=== PATIENT | female | born 1955 | race Caucasian/White ===

== ENCOUNTER 2020-04-29 06:22 | Outpatient (REF) | payer OTHER, SELFPAY ==
[2020-04-29 07:57] LABS: Alanine Aminotransferase 49 U/L (0-31); Albumin Level 4.6 g/dL (3.5-5.0); Alkaline Phosphatase 44 U/L (39-117); Aspartate Amino Transferase 41 U/L (5-31); Bilirubin Direct 0.3 mg/dL (0.0-0.5); Bilirubin Total 0.6 mg/dL (0.0-1.0); Cholesterol 183 mg/dL; HDL Cholesterol 43 mg/dL; LDL Cholesterol Calculated 91 mg/dl; Total Protein 7.5 g/dL (6.5-8.0); Triglycerides 245 mg/dL
== END 2020-04-29 06:23 | disposition home or self-care (01) ==
LOC: HO.LAB 06:22
PROVIDERS: PCP Internal Medicine; Visit Provider Internal Medicine
DX: E11.65 Type 2 diabetes mellitus with hyperglycemia (principal); E78.00 Pure hypercholesterolemia, unspecified; K76.0 Fatty (change of) liver, not elsewhere classified; I10 Essential (primary) hypertension; E03.9 Hypothyroidism, unspecified; M81.0 Age-related osteoporosis without current pathological fracture; Z12.31 Encounter for screening mammogram for malignant neoplasm of breast
CPT/HCPCS: 80061; 80076

== ENCOUNTER 2020-05-15 07:54 | Outpatient (REF) | payer OTHER, SELFPAY ==
--- NOTE | 2020-05-15 07:58 | MM_ITS ---
EXAMINATION: MM SCREENING DIGITAL BREAST TOMOSYNTHESIS, BILATERAL CLINICAL INFORMATION: Screening. Asymptomatic. The lifetime risk of breast cancer based on the Tyrer-Cuzick Model is 6.8%. COMPARISON: Mammography: November 30, 2018 and studies dating back to May 27, 2011 TECHNIQUE: Digital breast tomosynthesis is performed in both the craniocaudal and mediolateral oblique views along with computer-aided detection (CAD). Synthesized 2D images are generated from the tomosynthesis. FINDINGS: There are scattered areas of fibroglandular density (ACR BI-RADS breast composition Category b). There are no significant masses, abnormal calcifications, or other abnormalities. MM/MM tomosynthesis screening BI IMPRESSION: There are no significant changes from prior study. ASSESSMENT: BI-RADS 1: Negative RECOMMENDATION: Routine annual mammography screening. This patient's information was entered into a reminder system with a target due date for their next mammogram.
== END 2020-05-15 07:55 | disposition home or self-care (01) ==
LOC: HO.MAMMO 07:54
PROVIDERS: PCP Internal Medicine; Visit Provider Internal Medicine
DX: Z12.31 Encounter for screening mammogram for malignant neoplasm of breast (principal)
CPT/HCPCS: 77063; 77067

== ENCOUNTER → 2020-08-24 14:15 | Outpatient (BNVA) | payer OTHER, SELFPAY | PROVIDERS: PCP Internal Medicine; Visit Provider Nurse Practitioner ==

== ENCOUNTER → 2020-09-18 12:32 | Outpatient (BNVA) | payer OTHER, SELFPAY | PROVIDERS: PCP Internal Medicine; Visit Provider Nurse Practitioner ==

== ENCOUNTER → 2021-01-08 13:31 | Outpatient (BNVA) | payer OTHER, SELFPAY | PROVIDERS: PCP Internal Medicine; Referring Provider Internal Medicine; Visit Provider Nurse Practitioner ==

== ENCOUNTER 2021-03-20 07:02 | Outpatient (REF) | payer OTHER, SELFPAY ==
[2021-03-20 07:21] LABS: MANUAL DIFF FLAG NO
[2021-03-20 07:45] LABS: Basophils Absolute Auto 0.1 X10*3/uL (0.0-0.2); Basophils Percent Auto 0.9 % (0-2); Eosinophils Absolute Auto 0.1 X10*3/uL (0.0-0.4); Eosinophils Percent Auto 2.4 % (0-4); Hematocrit 39.4 % (37-47); Hemoglobin 12.7 g/dl (12.0-16.0); Imm Gran Abs Auto 0.04 X10*3/uL (0.00-0.03); Imm Gran Pct Auto 0.7 % (0.0-0.4); Lymphocytes Absolute Auto 1.8 X10*3/uL (1.2-4.9); Lymphocytes Percent Auto 30.6 % (20-40); Mean Corpuscular HGB Conc 32.2 g/dl (31.0-35.0); Mean Corpuscular Hemoglobin 26.8 pg (27.0-33.0); Mean Corpuscular Volume 83.3 fL (80-98); Mean Platelet Volume 11.1 fL (9.4-12.3); Monocytes Absolute Auto 0.7 X10*3/uL (0.1-1.2); Monocytes Percent Auto 11.4 % (2-11); Neutrophils Absolute Auto 3.1 X10*3/uL (2.0-8.3); Platelet Count 249 X10*3/uL (160-400); Red Blood Count 4.73 X10*6/uL (4.20-5.50); Red Cell Distribution Width 14.7 % (11.0-16.0); White Blood Count 5.8 X10*3/uL (4.8-10.8)
[2021-03-20 08:02] LABS: Alanine Aminotransferase 78 U/L (0-31); Albumin Level 4.6 g/dL (3.5-5.0); Alkaline Phosphatase 60 U/L (39-117); Anion Gap 16 (12-20); Aspartate Amino Transferase 51 U/L (5-31); Bilirubin Total 0.5 mg/dL (0.0-1.0); Blood Urea Nitrogen 33 mg/dL (9-16); Carbon Dioxide 23 mmol/L (22-29); Chloride 106 mmol/L (96-108); Cholesterol 187 mg/dL; Estimated Glomerular Filt Rate 43; Glucose Random 95 mg/dL (60-115); HDL Cholesterol 42 mg/dL; LDL Cholesterol Calculated 103 mg/dl; Potassium 4.7 mmol/L (3.3-5.1); Sodium 140 mmol/L (135-145); Total Protein 7.5 g/dL (6.5-8.0); Triglycerides 212 mg/dL
[2021-03-20 08:11] LABS: Estimated Average Glucose 128 mg/dL; Hemoglobin A1C 148.3137 umol/L; Hemoglobin A1c % 6.1 %
[2021-03-20 08:24] LABS: Free T4 (Free Thyroxine) 0.86 ng/dL (0.71-1.85); Vitamin D 25-OH Total 38.9 ng/mL (>30)
[2021-03-22 08:06] LABS: Folate 15.4 ng/mL (> or = 4.0); Vitamin B12 826 pg/mL (200-900)
== END 2021-03-20 07:03 | disposition home or self-care (01) ==
LOC: HO.LAB 07:02
PROVIDERS: PCP Internal Medicine; Visit Provider Internal Medicine
DX: I10 Essential (primary) hypertension (principal); E78.00 Pure hypercholesterolemia, unspecified; E03.9 Hypothyroidism, unspecified; E11.65 Type 2 diabetes mellitus with hyperglycemia; M81.0 Age-related osteoporosis without current pathological fracture
CPT/HCPCS: 36415; 80053; 80061; 82306; 82607; 82746; 83036; 84439; 84443; 85025

== ENCOUNTER 2021-03-23 09:05 | Outpatient (REF) | payer OTHER, SELFPAY ==
[2021-03-23 10:25] LABS: Creatinine Urine 79.35 mg/dL; Microalbum/Creatinine Ratio Ur 8.8 ug/mg cr
== END 2021-03-23 09:06 | disposition home or self-care (01) ==
LOC: HO.LNP 09:05
PROVIDERS: Visit Provider Internal Medicine
DX: E11.65 Type 2 diabetes mellitus with hyperglycemia (principal)
CPT/HCPCS: 82043

== ENCOUNTER → 2021-04-02 14:41 | Outpatient (BNVA) | payer OTHER, SELFPAY | PROVIDERS: PCP Internal Medicine; Visit Provider Nurse Practitioner ==

== ENCOUNTER 2022-03-15 08:53 | Outpatient (REF) | payer OTHER, SELFPAY ==
--- NOTE | ~2022-03-15 | MM_ITS ---
EXAMINATION: MM SCREENING DIGITAL BREAST TOMOSYNTHESIS, BILATERAL CLINICAL INFORMATION: Screening. Asymptomatic. The lifetime risk of breast cancer based on the Tyrer-Cuzick Model is 6%. COMPARISON: Mammography: 05/15/2020, 11/30/2018, 10/09/2017 TECHNIQUE: Digital breast tomosynthesis is performed in both the craniocaudal and mediolateral oblique views along with computer-aided detection (CAD). Synthesized 2D images are generated from the tomosynthesis. FINDINGS: There are scattered areas of fibroglandular density (ACR BI-RADS breast composition Category b). There are no significant masses, abnormal calcifications, or other abnormalities. Parenchymal pattern is similar to prior studies. There is no developing density or architectural abnormality. The axilla and skin contours are unremarkable. No significant changes. MM/MM tomosynthesis screening BI IMPRESSION: No mammographic evidence of malignancy. ASSESSMENT: BI-RADS 1: Negative RECOMMENDATION: Routine annual mammography screening. This patient's information was entered into a reminder system with a target due date for their next mammogram.
== END 2022-03-15 08:54 | disposition home or self-care (01) ==
LOC: HO.MAMMO 08:53
PROVIDERS: Visit Provider Internal Medicine
DX: Z12.31 Encounter for screening mammogram for malignant neoplasm of breast (principal)
CPT/HCPCS: 77063; 77067

== ENCOUNTER 2022-04-23 07:12 | Outpatient (REF) | payer OTHER, SELFPAY ==
[2022-04-23 07:28] LABS: MANUAL DIFF FLAG NO
[2022-04-23 08:19] LABS: Basophils Absolute Auto 0.1 X10*3/uL (0.0-0.2); Basophils Percent Auto 0.9 % (0-2); Eosinophils Absolute Auto 0.2 X10*3/uL (0.0-0.4); Eosinophils Percent Auto 2.5 % (0-4); Hematocrit 38.7 % (37.0-47.0); Hemoglobin 12.7 g/dl (12.0-16.0); Imm Gran Abs Auto 0.03 X10*3/uL (0.00-0.03); Imm Gran Pct Auto 0.5 % (0.0-0.4); Lymphocytes Absolute Auto 2.1 X10*3/uL (1.2-4.9); Lymphocytes Percent Auto 33.2 % (20-40); Mean Corpuscular HGB Conc 32.8 g/dl (31.0-35.0); Mean Corpuscular Hemoglobin 27.6 pg (27.0-33.0); Mean Corpuscular Volume 84.1 fL (80.0-98.0); Mean Platelet Volume 10.6 fL (9.4-12.3); Monocytes Absolute Auto 0.8 X10*3/uL (0.1-1.2); Monocytes Percent Auto 11.7 % (2-11); Neutrophils Absolute Auto 3.3 x10*3/uL (2.0-8.3); Neutrophils Percent Auto 51.2 % (45-73); Platelet Count 296 X10*3/uL (160-400); Red Cell Distribution Width 14.8 % (11.0-16.0); White Blood Count 6.4 X10*3/uL (4.8-10.8)
[2022-04-23 08:22] LABS: Estimated Average Glucose 128 mg/dL; Hemoglobin A1c % 6.1 %
[2022-04-23 08:39] LABS: Alanine Aminotransferase 66 U/L (0-31); Albumin Level 4.4 g/dL (3.5-5.0); Alkaline Phosphatase 46 U/L (39-117); Anion Gap 16 (12-20); Aspartate Amino Transferase 45 U/L (5-31); Bilirubin Total 0.6 mg/dL (0.0-1.0); Blood Urea Nitrogen 31 mg/dL (9-16); Calcium 10.5 mg/dL (8.4-10.2); Carbon Dioxide 25 mmol/L (22-29); Chloride 103 mmol/L (96-108); Cholesterol 206 mg/dL; Estimated Glomerular Filt Rate 39; Glucose Random 99 mg/dL (60-115); HDL Cholesterol 42 mg/dL; LDL Cholesterol Calculated 110 mg/dl; Sodium 139 mmol/L (135-145); Thyroid Stimulating Hormone 1.57 uIU/mL (0.32-4.0); Total Protein 7.2 g/dL (6.5-8.0); Triglycerides 271 mg/dL; Vitamin D 25-OH Total 34.6 ng/mL (>30)
[2022-04-23 08:40] LABS: Creatinine Urine 48.23 mg/dL; Microalbumin Urine < 5.0 mg/L
[2022-04-23 08:47] LABS: Folate 12.6 ng/mL (> or = 4.0); Vitamin B12 777 pg/mL (200-900)
[2022-04-23 09:34] LABS: Free T4 (Free Thyroxine) 1.09 ng/dL (0.71-1.85)
== END 2022-04-23 07:13 | disposition home or self-care (01) ==
LOC: HO.LAB 07:12
PROVIDERS: PCP Internal Medicine; Visit Provider Internal Medicine
DX: E11.65 Type 2 diabetes mellitus with hyperglycemia (principal); M81.0 Age-related osteoporosis without current pathological fracture; I10 Essential (primary) hypertension; E03.9 Hypothyroidism, unspecified; E78.00 Pure hypercholesterolemia, unspecified
CPT/HCPCS: 36415; 80053; 80061; 82043; 82306; 82607; 82746; 83036; 84439; 84443; 85025

== ENCOUNTER 2022-12-23 08:12 | Outpatient (REF) | payer OTHER, SELFPAY ==
[2022-12-23 08:46] LABS: Alanine Aminotransferase 58 U/L (0-31); Albumin Level 4.4 g/dL (3.5-5.0); Alkaline Phosphatase 57 U/L (39-117); Anion Gap 16 (12-20); Aspartate Amino Transferase 43 U/L (5-31); Bilirubin Total 0.9 mg/dL (0.0-1.0); Blood Urea Nitrogen 24 mg/dL (9-16); Calcium 10.9 mg/dL (8.4-10.2); Carbon Dioxide 25 mmol/L (22-29); Chloride 104 mmol/L (96-108); Cholesterol 256 mg/dL; Estimated Glomerular Filt Rate 36; Glucose Random 106 mg/dL (60-115); HDL Cholesterol 45 mg/dL; LDL Cholesterol Calculated 158 mg/dl; Potassium 4.6 mmol/L (3.3-5.1); Sodium 140 mmol/L (135-145); Total Protein 7.6 g/dL (6.5-8.0); Triglycerides 267 mg/dL
== END 2022-12-23 08:13 | disposition home or self-care (01) ==
LOC: HO.LAB 08:12
PROVIDERS: PCP Internal Medicine; Visit Provider Internal Medicine
DX: E78.00 Pure hypercholesterolemia, unspecified (principal)
CPT/HCPCS: 36415; 80053; 80061

== ENCOUNTER 2022-12-26 15:12 | Outpatient (AMB) | payer OTHER, SELFPAY ==
[2022-12-26 15:17] VITALS: BP 130/70; PULSE 72; O2SAT 98; BMI 23.1
--- NOTE | 2022-12-26 15:17 | A.OFFPC_ITS ---
Vital Signs 12/26/22 15:17 Height 5 ft 5 in Weight 139 lb BMI 23.1 BP 130/70 Blood Pressure Location Lt brachial Position Sitting Pulse 72 Pulse Source Pulse Oximeter Temp Source Skin Pulse Oximetry (%) 98 Oxygen Delivery Method Room Air Intake Visit Reasons: PHYSICAL Senior Policy Analyst Required: No Allergies niacin Allergy (Unknown, Verified 12/26/22 15:17) hives,diarrhea Medication List - Last Reconciled 12/26/22 by Antonio Linares MD alendronate 70 mg PO QWEEK atorvastatin (Lipitor) 40 mg PO DAILY 90 days cholecalciferol (vitamin D3) 50 mcg PO DAILY 90 days fenofibrate 160 mg PO DAILY levothyroxine 50 mcg PO DAILY lisinopril 5 mg PO DAILY metformin 1,000 mg PO DAILY Tobacco use date assessed: 12/26/22 Fall risk assessment: No Falls in past year Last assessed Fall Risk: 12/26/22 Dental Screening Dental Screen Date: 12/26/22 Did you have a dental visit in the last 12 months?: Yes Did you have a dental problem in the last 6 months where you did not have access to dental care?: No Was dental information given to patient?: Patient has dentist HPI PHYSICAL HPI Details 67-year-old female with diabetes mellitus hypercholesterolemia osteoporosis hypothyroidism hypertension last seen in July 2022. Patient is here for physical exam. Mammogram is up-to-date bone density is due and Cologuard test is up-to-date. [facility] Medical History (Updated 12/26/22 @ 16:19 by Antonio Linares MD) Breast cancer screening by mammogram Colon cancer screening Fatty liver Hypercholesterolemia Hypertension Hypothyroid Osteoporosis Type 2 diabetes mellitus with hyperglycemia Surgical History History of cholecystectomy Hx of colonoscopy (~2010) Family History Father Myocardial infarction Mother CAD (coronary artery disease) Social History Housing: House Alcohol intake: never Patient Tobacco Use Status: Never used Tobacco e-Cigarette/Vaping Use: Never Used Second Hand Smoke Exposure: No Current occupational status: retired Cognitive needs: No Hearing needs: No Vision needs: No Questionnaire PHQ-9 Over the last 2 weeks, how often have you been bothered by any of the following problems? 1. Little interest or pleasure in doing things: not at all 2. Feeling down, depressed, or hopeless: not at all 3. Trouble falling or staying asleep, or sleeping too much: not at all 4. Feeling tired or having little energy: not at all 5. Poor appetite or overeating: not at all 6. Feeling bad about yourself - or that you are a failure or have let yourself or your family down: not at all 7. Trouble concentrating on things, such as reading the newspaper or watching television: not at all 8. Moving or speaking so slowly that other people could have noticed. Or the opposite - being so fidgety or restless that you have been moving around a lot more than usual: not at all 9. Thoughts that you would be better off or of hurting yourself in some way: not at all Total score: 0 Depression Screening Interpretation: Negative Source: Developed by Drs. Bhavik Villar, Vriy Lam, Ray Matias and colleagues, with an educational marla from [employer]. Thrive Questionnaire Date Thrive assessed: 08/05/22 AUDIT C Alcohol Use Questionnaire (AUDIT-C) 1. How often do you have a drink containing alcohol?: Never 2. How many drinks containing alcohol do you have on a typical day when you are drinking?: 1 or 2 3. How often do you have six or more drinks on one occasion?: Never Total Score: 0 CHRYSTAL-7 AMB Questionnaire CHRYSTAL-7 Date CHRYSTAL - 7 assessed: 12/26/22 Feeling nervous, anxious, or on edge: 0 = Not at all Not being able to stop or control worryin = Not at all Worrying too much about different things: 0 = Not at all Trouble relaxin = Not at all Being so restless that it is hard to sit still: 0 = Not at all Becoming easily annoyed or irritable: 0 = Not at all Feeling afraid as if something awful might happen: 0 = Not at all Total CHRYSTAL-7 score (0-4 normal; 5-9 mild; 10-14 moderate; 15-21 severe): 0 Source: Developed by Drs. Bhavik Villar, Ray Sams and colleagues, with an educational marla from [employer]. Review of Systems Const Denies poor appetite and Denies weakness Eyes Denies no additional complaints ENT Reports Normal hearing present, Denies dizziness, Denies nasal congestion, Denies tinnitus and Denies sore throat Card Denies chest pain, Denies syncope, Denies rapid heart rate and Denies dyspnea Resp Denies cough and Denies dyspnea GI Denies change in stool character, Reports constipation, Denies diarrhea, Denies nausea and Denies vomiting Denies urinary frequency, Denies difficulty voiding and Denies dysuria Neuro Reports Normal hearing present, Denies confusion, Denies dizziness, Denies syncope and Denies weakness Psych Denies confusion Physical exam (Primary Care) Vital Signs: Last Vital Signs Pulse 72 12/26/22 15:17 BP 130/70 12/26/22 15:17 Pulse Ox 98 12/26/22 15:17 Oxygen Delivery Method Room Air 12/26/22 15:17 Care Plan Goal for BP management: guaiac negative BMI result Body Mass Index 23.1 Tobacco/Smoking Status: Tobacco use Status Tobacco use date assessed 12/26/22 12/26/22 15:18 Patient Tobacco Use Status Never used Tobacco 12/26/22 15:18 e-Cigarette/Vaping Use Never Used 12/26/22 15:18 PHQ-9: PHQ-9 Score PHQ-9: Total score 0 12/26/22 16:20 Depression Screening Interpretation: Negative Thrive Assessment: Date of Thrive Assessment Date Thrive assessed 08/05/22 12/26/22 15:18 Const General: No confusion Orientation/consciousness: No confusion HENMT Head: Yes normocephalic Ears: external ears normal and TM's normal bilaterally Face and sinus: Yes normal facial exam Mouth: moist mucous membranes Throat: Yes tonsils normal Eyes Conjunctivae: conjunctivae normal Pupils: Equal, round and reactive pupils present and Pupil accommodation reflex normal Direct Ophthalmoscopy: normal light reflex Neck Neck: No lymphadenopathy Thyroid: Thyroid normal Chest Chest palpation & inspection: normal inspection of the chest Resp Effort & Inspection: normal respiratory effort and no audible wheezes Auscultation: clear to auscultation bilaterally, no crackles, no wheezes and lung sounds not diminished Cardio Rate: regular rate Rhythm: regular rhythm Peripheral pulses: radial pulses present and dorsalis pedis present GI Palpation (GI): no masses Auscultation: normal bowel sounds and normoactive bowel sounds Skin General skin exam: no rashes or lesions noted Rashes: no rashes Neuro General: No confusion Cranial nerves: Yes Equal, round and reactive pupils present and Yes Normal hearing present Cognition (Neuro): normal cognition Gait exam (Neuro): Normal gait present Motor exam (neuro): 5/5 motor strength present throughout Deep tendon reflexes (DTR's): Right brachioradialis reflex intensity grade: 2+, Left brachioradialis reflex intensity grade: 2+, Right patellar reflex intensity grade: 2+ and Left patellar reflex intensity grade: 2+ Extrem General: No edema Results AMB Hemoglobin A1c AMB Hemoglobin A1c 6.1 % Last Edit by MARY Linares on 12/26/22 16:24 Assessment and Plan Assessment & Plan (1) Annual physical exam: Code(s): Z00.00 - Encounter for general adult medical examination without abnormal findings (2) Type 2 diabetes mellitus with hyperglycemia: Comment: Eye and [employer] Code(s): E11.65 - Type 2 diabetes mellitus with hyperglycemia Qualifiers: Diabetes mellitus buttermaker continuous churn insulin use: without buttermaker continuous churn use Qualified Code(s): E11.65 - Type 2 diabetes mellitus with hyperglycemia Plan: Decrease the amount of carbohydrate intake, pasta, bread, rice and potatoes are all sugar and that is aside from all the sweet stuff, remember that fruits are good but they are Sweet also. Hemoglobin A1c goal of less than 7.0 (3) Hypercholesterolemia: Code(s): E78.00 - Pure hypercholesterolemia, unspecified Plan: Avoid fried foods, chicken skin, eggs, butter margarine, pastries and meat. Be it pork or beef they have a lot of cholesterol LDL goal of less than 100 and triglyceride of less than 150 (4) Osteoporosis: Code(s): M81.0 - Age-related osteoporosis without current pathological fracture Qualifiers: Osteoporosis type: age-related Presence of current pathological fracture: without current pathological fracture Qualified Code(s): M81.0 - Age- related osteoporosis without current pathological fracture Plan: Patient on alendronate needs follow-up bone density (5) Hypertension: Code(s): I10 - Essential (primary) hypertension Qualifiers: Hypertension type: essential hypertension Qualified Code(s): I10 - Essential (primary) hypertension Plan: Continue with blood pressure medication. Decrease salt intake and exercise patient is taking lisinopril 5 mg once a day (6) Hypothyroid: Code(s): E03.9 - Hypothyroidism, unspecified Qualifiers: Hypothyroidism type: acquired Qualified Code(s): E03.9 - Hypothyroidism, unspecified Plan: Continue with thyroid medication (7) Hypercalcemia: Code(s): E83.52 - Hypercalcemia Plan: Concern about elevated calcium will have to retest. Orders: Orders XR DEXA axial skeleton Today M81.0 - Age-related osteoporosis without current pathological fracture Comprehensive Met. Panel 3 Months M81.0 - Age-related osteoporosis without current pathological fracture Lipid Panel 3 Months E78.00 - Pure hypercholesterolemia, unspecified, M81.0 - Age-related osteoporosis without current pathological fracture AMB Hemoglobin A1c Today E11.65 - Type 2 diabetes mellitus with hyperglycemia Medications: Changed From atorvastatin (Lipitor) 40 mg PO DAILY 90 days 90 tabs 2RF E78.00 - Pure hypercholesterolemia, unspecified To atorvastatin 80 mg PO DAILY 90 days 90 tabs 2RF E78.00 - Pure hypercholesterolemia, unspecified Coding Level of Care Code Est Pt Prev Care >65y(15928) Diagnoses Annual physical exam Z00.00 Type 2 diabetes mellitus with hyperglycemia E11.65 Diabetes mellitus buttermaker continuous churn insulin use: without mcc use Hypercholesterolemia E78.00 Osteoporosis M81.0 Osteoporosis type: age-related Presence of current pathological fracture: without current pathological fracture Hypertension I10 Hypertension type: essential hypertension Hypothyroid E03.9 Hypothyroidism type: acquired Hypercalcemia E83.52
== END 2022-12-26 16:42 | disposition home or self-care (01) ==
PROVIDERS: PCP Internal Medicine; Visit Provider Internal Medicine
DX: Z00.00 Encounter for general adult medical examination without abnormal findings (principal); E11.65 Type 2 diabetes mellitus with hyperglycemia; I10 Essential (primary) hypertension; E03.9 Hypothyroidism, unspecified; E83.52 Hypercalcemia; E78.00 Pure hypercholesterolemia, unspecified; M81.0 Age-related osteoporosis without current pathological fracture
CPT/HCPCS: 83036; 99397

== ENCOUNTER 2023-01-20 12:57 | Outpatient (REF) | payer OTHER, SELFPAY ==
--- NOTE | ~2023-01-20 | MM_ITS ---
EXAMINATION: BONE DENSITOMETRY CLINICAL INDICATION: Osteoporosis. COMPARISON: Previous BD dated 11/30/2018 and baseline BD dated 05/11/2010. TECHNIQUE: Using a [employer] DXA System (software version: 13.1) manufactured by [employer], dual-energy x-ray absorptiometry was performed of the lumbar spine and left hip. The images are of good technical quality. Summary results are attached. FINDINGS: LEFT FEMUR, NECK: Current: BMD 0.598 g/cm2, Z-score -1.5, T-score -3.2, osteoporosis. Prior: BMD 0.671 g/cm2. Baseline: BMD 0.721 g/cm2. LEFT FEMUR, TOTAL: Current: BMD 0.677 g/cm2, Z-score -1.2, T-score -2.6, osteoporosis, 10.4% decrease from previous, 13.9% decrease from baseline (<5% change is not significant). Prior: BMD 0.756 g/cm2. Baseline: BMD 0.786 g/cm2. AP SPINE L1-L4: Current: BMD 0.711 g/cm2, Z-score -1.7, T-score -3.4, osteoporosis, 3.0% decrease from previous, 3.5% decrease from baseline (<5% change is not significant). Prior: BMD 0.795 g/cm2. Baseline: BMD 0.799 g/cm2. IDENTIFIED RISK FACTORS: Menopause, osteoporosis. HISTORY OF FRACTURE: None listed. MEDICATIONS: Multivitamin, vitamin D. MM/XR DEXA axial skeleton IMPRESSION: 1. DIAGNOSIS: Osteoporosis based on the lowest T-score value of -3.4 in the lumbar spine applying World Health Organization criteria. 2. 10-YEAR FRACTURE RISK PREDICTION, FRAX: According to the guidelines, FRAX calculation should only be performed on patients in the osteopenia bone density category. Therefore, FRAX was not performed on this patient. 3. Treatment Recommendations: NOF guidelines recommend consideration for treatment in postmenopausal women and men age 50 and older presenting with the following: -A hip or vertebral (clinical or morphometric) fracture. -T-score less than or equal to -2.5 at the femoral neck or spine after appropriate evaluation to exclude secondary causes. -Low bone mass at the hip or spine and a 10-year fracture probability by FRAX of greater than or equal to 3% for hip fracture or greater than or equal to 20% for major osteoporotic fracture based on the [place] adapted WHO algorithm. 4. Other Recommendations: All treatment decisions require clinical judgment and consideration of individual patient factors, including patient preferences, comorbidities, previous drug use, risk factors not captured in the FRAX model (e.g. frailty, falls, vitamin D deficiency, increased bone turnover, interval significant decline in bone density) and possible under or overestimation of fracture risk by FRAX. Additional medical evaluation for secondary cause of low bone mineral density may be appropriate. FUTURE SCAN RECOMMENDATION: People with diagnosed cases of osteoporosis or at high risk for fracture should have regular bone mineral density tests. For patients eligible for Medicare, routine testing is allowed once every 2 years. The testing frequency can be increased to one year for patients who have rapidly progressing disease, those who are receiving or discontinuing medical therapy to restore bone mass, or have additional risk factors.
== END 2023-01-20 12:58 | disposition home or self-care (01) ==
LOC: HO.MAMMO 12:57
PROVIDERS: PCP Internal Medicine; Visit Provider Internal Medicine
DX: Z13.820 Encounter for screening for osteoporosis (principal); Z78.0 Asymptomatic menopausal state; M81.0 Age-related osteoporosis without current pathological fracture
CPT/HCPCS: 77080

== ENCOUNTER → 2023-01-20 13:30 | Outpatient (BNV) | payer OTHER, SELFPAY | PROVIDERS: PCP Internal Medicine; Visit Provider Radiology Diagnostic Radiology | DX: M85.89 Other specified disorders of bone density and structure, multiple sites (principal) | CPT/HCPCS: 77080 ==

== ENCOUNTER 2023-03-21 08:40 | Outpatient (REF) | payer OTHER, SELFPAY | END 2023-03-21 08:41 | disposition home or self-care (01) | LOC: HO.MAMMO 08:40 | PROVIDERS: PCP Internal Medicine; Visit Provider Internal Medicine | DX: Z12.31 Encounter for screening mammogram for malignant neoplasm of breast (principal) | CPT/HCPCS: 77063; 77067 ==

== ENCOUNTER → 2023-03-21 09:15 | Outpatient (BNV) | payer OTHER, SELFPAY | PROVIDERS: PCP Internal Medicine; Visit Provider Radiology Diagnostic Radiology | DX: Z12.31 Encounter for screening mammogram for malignant neoplasm of breast (principal) | CPT/HCPCS: 77063; 77067 ==

== ENCOUNTER 2023-04-01 07:02 | Outpatient (REF) | payer OTHER, SELFPAY ==
[2023-04-01 08:47] LABS: Alanine Aminotransferase 58 U/L (0-31); Albumin Level 4.5 g/dL (3.5-5.0); Alkaline Phosphatase 52 U/L (39-117); Anion Gap 18 (12-20); Aspartate Amino Transferase 47 U/L (5-31); Bilirubin Total 0.6 mg/dL (0.0-1.0); Blood Urea Nitrogen 26 mg/dL (9-16); Calcium 10.6 mg/dL (8.4-10.2); Carbon Dioxide 23 mmol/L (22-29); Chloride 103 mmol/L (96-108); Cholesterol 178 mg/dL (<200); Estimated Glomerular Filt Rate 43; Glucose Random 95 mg/dL (60-115); HDL Cholesterol 43 mg/dL (>40); LDL Cholesterol Calculated 90 mg/dL (<100); Potassium 4.7 mmol/L (3.3-5.1); Sodium 139 mmol/L (135-145); Total Protein 7.6 g/dL (6.5-8.0); Triglycerides 229 mg/dL (<150)
[2023-04-01 09:16] LABS: Creatinine Urine 50.18 mg/dL
[2023-04-03 11:04] LABS: Calcium (PTHI) 10.5 mg/dL (8.6-10.4); PTHI 31 pg/mL (16-77)
[2023-04-03 15:08] LABS: Calcium, Ionized 5.5 mg/dL (4.7-5.5)
== END 2023-04-01 07:03 | disposition home or self-care (01) ==
LOC: HO.LAB 07:02
PROVIDERS: PCP Internal Medicine; Visit Provider Internal Medicine
DX: M81.0 Age-related osteoporosis without current pathological fracture (principal); E83.52 Hypercalcemia; E78.00 Pure hypercholesterolemia, unspecified; N28.9 Disorder of kidney and ureter, unspecified
CPT/HCPCS: 36415; 80053; 80061; 82330; 82570; 83970

== ENCOUNTER 2023-04-07 14:39 | Outpatient (AMB) | payer OTHER, SELFPAY ==
[2023-04-07 15:01] VITALS: BP 130/64; PULSE 67; O2SAT 99; BMI 22.1
--- NOTE | 2023-04-07 15:01 | A.OFFPC_ITS ---
Vital Signs 04/07/23 15:01 Height 5 ft 5 in Weight 133 lb BMI 22.1 BP 130/64 Blood Pressure Location Lt brachial Position Sitting Pulse 67 Pulse Source Pulse Oximeter Pulse Oximetry (%) 99 Oxygen Delivery Method Room Air Intake Visit Reasons: hypercholesterol , hypercalcemia, renal insuff Department Sales Manager: Not Required per policy Accompanied by: Self / Same As Patient Allergies niacin Allergy (Unknown, Verified 04/07/23 15:01) hives,diarrhea Tobacco use date assessed: 12/26/22 Fall risk assessment: No Falls in past year Last assessed Fall Risk: 04/07/23 Dental Screening Dental Screen Date: 04/07/23 Did you have a dental visit in the last 12 months?: Yes Did you have a dental problem in the last 6 months where you did not have access to dental care?: No Was dental information given to patient?: Patient has dentist HPI hypercholesterol , hypercalcemia, renal insuff HPI Details 67-year-old female with diabetes mellitu s controlled hypercholesterolemia hypertension hypothyroidism and osteoporosis last seen in December 2022. Patient has mammogram is up-to-date bone density is up-to-date and colonoscopy having Cologuard up-to-date. Patient is here for follow-up [facility] Medical History Breast cancer screening by mammogram Colon cancer screening Type 2 diabetes mellitus with hyperglycemia Hypercholesterolemia Fatty liver Osteoporosis Hypertension Hypothyroid Surgical History Hx of colonoscopy (~2010) History of cholecystectomy Family History Father Myocardial infarction Mother CAD (coronary artery disease) Social History Housing: House Alcohol intake: never Patient Tobacco Use Status: Never used Tobacco e-Cigarette/Vaping Use: Never Used Second Hand Smoke Exposure: No Current occupational status: retired Cognitive needs: No Hearing needs: No Vision needs: No Questionnaire PHQ-9 Over the last 2 weeks, how often have you been bothered by any of the following problems? 1. Little interest or pleasure in doing things: not at all 2. Feeling down, depressed, or hopeless: not at all 3. Trouble falling or staying asleep, or sleeping too much: not at all 4. Feeling tired or having little energy: not at all 5. Poor appetite or overeating: not at all 6. Feeling bad about yourself - or that you are a failure or have let yourself or your family down: not at all 7. Trouble concentrating on things, such as reading the newspaper or watching television: not at all 8. Moving or speaking so slowly that other people could have noticed. Or the opposite - being so fidgety or restless that you have been moving around a lot more than usual: not at all 9. Thoughts that you would be better off or of hurting yourself in some way: not at all Total score: 0 Depression Screening Interpretation: Negative Depression Screening Done: Yes Source: Developed by Drs. Bhavik Villar, Viry Lam, Ray Matias and colleagues, with an educational marla from [employer]. Thrive Questionnaire Date Thrive assessed: 08/05/22 AUDIT C Alcohol Use Questionnaire (AUDIT-C) 1. How often do you have a drink containing alcohol?: Never 2. How many drinks containing alcohol do you have on a typical day when you are drinking?: 1 or 2 3. How often do you have six or more drinks on one occasion?: Never Total Score: 0 CHRYSTAL-7 AMB Questionnaire CHRYSTAL-7 Date CHRYSTAL - 7 assessed: 12/26/22 Source: Developed by Drs. Bhavik Villar, Viry Lam, Ray Matias and colleagues, with an educational marla from [employer]. Physical exam (Primary Care) Vital Signs: Last Vital Signs Pulse 67 04/07/23 15:01 BP 130/64 04/07/23 15:01 Pulse Ox 99 04/07/23 15:01 Oxygen Delivery Method Room Air 04/07/23 15:01 BMI result Body Mass Index 22.1 Tobacco/Smoking Status: Tobacco use Status Tobacco use date assessed 12/26/22 04/07/23 15:02 Patient Tobacco Use Status Never used Tobacco 04/07/23 15:02 e-Cigarette/Vaping Use Never Used 04/07/23 15:02 PHQ-9: PHQ-9 Score PHQ-9: Total score 0 04/07/23 15:17 Depression Screening Interpretation: Negative Thrive Assessment: Date of Thrive Assessment Date Thrive assessed 08/05/22 04/07/23 15:02 Const General: alert; No acute distress Eyes Conjunctivae: conjunctivae normal Resp Auscultation: clear to auscultation bilaterally Cardio Rate: regular rate Rhythm: regular rhythm GI Inspection: Yes normal to inspection Extrem General: Yes normal to inspection and No edema Results AMB Hemoglobin A1c AMB Hemoglobin A1c 6.3 % Last Edit by MARY Ventura on 04/07/23 15:18 Results Reviewed Results Reviewed: Laboratory Last Values Hgb A1c (Clinic) 6.3 % (4.0-6.0) H 04/07/23 15:03 Assessment and Plan Assessment & Plan (1) Type 2 diabetes mellitus with hyperglycemia: Comment: [facility] Code(s): E11.65 - Type 2 diabetes mellitus with hyperglycemia Qualifiers: Diabetes mellitus superintendent container terminal insulin use: without superintendent container terminal use Qualified Code(s): E11.65 - Type 2 diabetes mellitus with hyperglycemia Plan: Decrease the amount of carbohydrate intake, pasta, bread, rice and potatoes are all sugar and that is aside from all the sweet stuff, remember that fruits are good but they are Sweet also. Hemoglobin A1c goal of less than 7.0 patient takes metformin a 1000 mg once a day (2) Hypercholesterolemia: Code(s): E78.00 - Pure hypercholesterolemia, unspecified Plan: Avoid fried foods, chicken skin, eggs, butter margarine, pastries and meat. Be it pork or beef they have a lot of cholesterol LDL goal of less than 100 triglyceride of less than 150 patient on atorvastatin 80 and fenofibrate 160 (3) Osteoporosis: Code(s): M81.0 - Age-related osteoporosis without current pathological fracture Qualifiers: Osteoporosis type: age-related Presence of current pathological fracture: without current pathological fracture Qualified Code(s): M81.0 - Age- related osteoporosis without current pathological fracture Plan: Continue with alendronate once a week (4) Hypertension: Code(s): I10 - Essential (primary) hypertension Qualifiers: Hypertension type: essential hypertension Qualified Code(s): I10 - Essential (primary) hypertension Plan: Continue with blood pressure medication. Decrease salt intake and exercise continue with lisinopril 5 mg once a day (5) Hypothyroid: Code(s): E03.9 - Hypothyroidism, unspecified Qualifiers: Hypothyroidism type: acquired Qualified Code(s): E03.9 - Hypothyroi dism, unspecified Plan: Continue with thyroid medication (6) Hypercalcemia: Code(s): E83.52 - Hypercalcemia Plan: Parathyroid testing is (7) Renal insufficiency: Code(s): N28.9 - Disorder of kidney and ureter, unspecified Plan: Keep well hydrated avoid NSAIDs Orders: Orders AMB Hemoglobin A1c Today E11.65 - Type 2 diabetes mellitus with hyperglycemia Parathyroid Hormone Related Pr Today E83.52 - Hypercalcemia Protein Electrophoresis, Serum Today E83.52 - Hypercalcemia, R79.89 - Other specified abnormal findings of blood chemistry Coding Level of Care Code Est Pt Level 4 (73097) Diagnoses Type 2 diabetes mellitus with hyperglycemia, without long-term current use of insulin E11.65 Diabetes mellitus retirement insulin use: without superintendent container terminal use Hypercholesterolemia E78.00 Age-related osteoporosis without current pathological fracture M81.0 Osteoporosis type: age-related Presence of current pathological fracture: without current pathological fracture Essential hypertension I10 Hypertension type: essential hypertension Acquired hypothyroidism E03.9 Hypothyroidism type: acquired Hypercalcemia E83.52 Renal insufficiency N28.9
== END 2023-04-07 16:14 | disposition home or self-care (01) ==
PROVIDERS: PCP Internal Medicine; Visit Provider Internal Medicine
DX: E11.65 Type 2 diabetes mellitus with hyperglycemia (principal); E78.00 Pure hypercholesterolemia, unspecified; M81.0 Age-related osteoporosis without current pathological fracture; I10 Essential (primary) hypertension; E03.9 Hypothyroidism, unspecified; E83.52 Hypercalcemia; N28.9 Disorder of kidney and ureter, unspecified
CPT/HCPCS: 83036; 99214

== ENCOUNTER 2023-11-25 09:58 | Outpatient (REF) | payer OTHER, SELFPAY ==
[2023-11-25 10:46] LABS: Alanine Aminotransferase 50 U/L (0-31); Albumin Level 4.5 g/dL (3.5-5.0); Alkaline Phosphatase 51 U/L (39-117); Anion Gap 13 (12-20); Aspartate Amino Transferase 40 U/L (5-31); Bilirubin Total 0.6 mg/dL (0.0-1.0); Blood Urea Nitrogen 26 mg/dL (9-16); Calcium 10.4 mg/dL (8.4-10.2); Carbon Dioxide 27 mmol/L (22-29); Chloride 105 mmol/L (96-108); Estimated Glomerular Filt Rate 47; Glucose Random 92 mg/dL (60-115); Potassium 4.6 mmol/L (3.3-5.1); Sodium 140 mmol/L (135-145); Total Protein 7.5 g/dL (6.5-8.0)
[2023-11-28 22:57] LABS: Prot Elec - Albumin 4.2 g/dL (3.8-4.8); Prot Elec - Alpha1 0.3 g/dL (0.2-0.3); Prot Elec - Alpha2 0.9 g/dL (0.5-0.9); Prot Elec - Beta 1 0.6 g/dL (0.4-0.6); Prot Elec - Beta 2 0.4 g/dL (0.2-0.5); Prot Elec - Gamma 0.7 g/dL (0.8-1.7)
[2023-12-06 17:38] LABS: Parathyroid Hormone Related Pr 9 pg/mL (11-20)
== END 2023-11-25 09:59 | disposition home or self-care (01) ==
LOC: HO.LAB 09:58
PROVIDERS: PCP Internal Medicine; Visit Provider Internal Medicine
DX: N28.9 Disorder of kidney and ureter, unspecified (principal); R79.89 Other specified abnormal findings of blood chemistry; E83.52 Hypercalcemia
CPT/HCPCS: 36415; 80053; 83519; 84165

== ENCOUNTER 2024-02-23 15:13 | Outpatient (AMB) | payer OTHER, SELFPAY ==
--- NOTE | 2024-02-23 15:32 | A.OFFPC_ITS ---
Vital Signs 02/23/24 15:35 Height 5 ft 5 in Weight 128 lb BMI 21.3 BP 130/72 Blood Pressure Location Lt brachial Position Sitting Pulse 69 Pulse Source Pulse Oximeter Pulse Oximetry (%) 97 Oxygen Delivery Method Room Air Intake Visit Reasons: fatty liver follow up [employer] Required: No Accompanied by: Self / Same As Patient Allergies niacin Allergy (Unknown, Verified 02/23/24 15:38) hives,diarrhea Tobacco use date assessed: 02/23/24 Fall risk assessment: No Falls in past year Last assessed Fall Risk: 02/23/24 Dental Screening Dental Screen Date: 02/23/24 Did you have a dental visit in the last 12 months?: Yes Did you have a dental problem in the last 6 months where you did not have access to dental care?: No Was dental information given to patient?: Patient has dentist HPI fatty liver follow up HPI Details 68-year-old female with controlled diabe kaycee mellitus hypercholesterolemia hypertension hypothyroid renal insufficiency coming in for follow-up. Last seen in 03/31/2023. Patient's mammogram is up-to-date bone density is up-to-date and Cologuard is due. [facility] Medical History (Updated 02/23/24 @ 16:28 by Antonio Linares MD) Breast cancer screening by mammogram Colon cancer screening Type 2 diabetes mellitus with hyperglycemia Hypercholesterolemia Fatty liver Osteoporosis Hypertension Hypothyroid Surgical History Hx of colonoscopy (~2010) History of cholecystectomy Family History Father Myocardial infarction Mother CAD (coronary artery disease) Social History Housing: House Alcohol intake: never Patient Tobacco Use Status: Never used Tobacco Tobacco use type: Cigarette e-Cigarette/Vaping Use: Never Used Second Hand Smoke Exposure: No Current occupational status: retired Cognitive needs: No Hearing needs: No Vision needs: No Questionnaire PHQ-9 Over the last 2 weeks, how often have you been bothered by any of the following problems? 1. Little interest or pleasure in doing things: not at all 2. Feeling down, depressed, or hopeless: not at all 3. Trouble falling or staying asleep, or sleeping too much: not at all 4. Feeling tired or having little energy: not at all 5. Poor appetite or overeating: not at all 6. Feeling bad about yourself - or that you are a failure or have let yourself or your family down: not at all 7. Trouble concentrating on things, such as reading the newspaper or watching television: not at all 8. Moving or speaking so slowly that other people could have noticed. Or the opposite - being so fidgety or restless that you have been moving around a lot more than usual: not at all 9. Thoughts that you would be better off or of hurting yourself in some way: not at all Total score: 0 Depression Screening Interpretation: Negative Depression Screening Done: Yes Source: Developed by Drs. Bhavik Villar, Viry Lam, Ray Matias and colleagues, with an educational marla from [employer]. Thrive Questionnaire Date Thrive assessed: 02/23/24 I am a: Patient What is your living situation today?: I have a steady place to live Within the past 12 months, did the food you bought not last and you didn't have the money to get more?: Never true Within the past 12 months, did you worry whether your food would run out before you got money to buy more?: Never true THRIVE Score: 0 AUDIT C Alcohol Use Questionnaire (AUDIT-C) 1. How often do you have a drink containing alcohol?: Never 2. How many drinks containing alcohol do you have on a typical day when you are drinking?: 1 or 2 3. How often do you have six or more drinks on one occasion?: Never Total Score: 0 CHRYSTAL-7 AMB Questionnaire CHRYSTAL-7 Date CHRYSTAL - 7 assessed: 02/23/24 Feeling nervous, anxious, or on edge: 0 = Not at all Not being able to stop or control worryin = Not at all Worrying too much about different things: 0 = Not at all Trouble relaxin = Not at all Being so restless that it is hard to sit still: 0 = Not at all Becoming easily annoyed or irritable: 0 = Not at all Feeling afraid as if something awful might happen: 0 = Not at all Total CHRYSTAL-7 score (0-4 normal; 5-9 mild; 10-14 moderate; 15-21 severe): 0 Source: Developed by Drs. Bhavik Villar, Viry Lam, Ray Matias and colleagues, with an educational marla from [employer]. Physical exam (Primary Care) Vital Signs: Last Vital Signs Pulse 69 02/23/24 15:35 BP 130/72 02/23/24 15:35 Pulse Ox 97 02/23/24 15:35 Oxygen Delivery Method Room Air 02/23/24 15:35 BMI result Body Mass Index 21.3 Tobacco/Smoking Status: Tobacco use Status Tobacco use date assessed 02/23/24 02/23/24 15:41 Patient Tobacco Use Status Never used Tobacco 02/23/24 15:32 Tobacco use type Cigarette 02/23/24 15:41 e-Cigarette/Vaping Use Never Used 02/23/24 15:32 PHQ-9: PHQ-9 Score PHQ-9: Total score 0 02/23/24 16:29 Depression Screening Interpretation: Negative Thrive Assessment: Date of Thrive Assessment Date Thrive assessed 02/23/24 02/23/24 15:41 Const General: alert; No acute distress Eyes Conjunctivae: conjunctivae normal Resp Auscultation: clear to auscultation bilaterally Cardio Rate: regular rate Rhythm: regular rhythm GI Inspection: Yes normal to inspection Extrem General: Yes normal to inspection and No edema Results AMB Hemoglobin A1c AMB Hemoglobin A1c 6.3 % Last Edit by Shannan Hua CMA on 02/23/24 16:14 Immunizations tetanus-diphtheria toxoids-Td 2 Lf unit-2 Lf unit/0.5 mL IM suspension Performing Provider: Antonio Linares MD [facility] Administered by: CLAIRE Burgess on 02/23/24 16:41 Dose Route Admin Location Dispensed Lot Number Expiration Date NDC Sulfur Burner 0.5 mL IM Left Deltoid 0.5 mL [id number] 07/22/24 [id number] [employer] VIS Given Date VIS Provided VIS Publication Date 02/23/24 Single Vaccine 21 Eligibility Eligibility Date Funding Source Not VFC Eligible 02/23/24 State funds Results Reviewed Results Reviewed: Laboratory Last Values Hgb A1c (Clinic) 6.3 % (4.0-6.0) H 02/23/24 15:41 Assessment and Plan Assessment & Plan (1) Type 2 diabetes mellitus with hyperglycemia: Comment: [employer] [facility] [employer] Code(s): E11.65 - Type 2 diabetes mellitus with hyperglycemia Qualifiers: Diabetes mellitus detention insulin use: without manager long term care use Qualified Code(s): E11.65 - Type 2 diabetes mellitus with hyperglycemia Plan: Decrease the amount of carbohydrate intake, pasta, bread, rice and potatoes are all sugar and that is aside from all the sweet stuff, remember that fruits are good but they are Sweet also. Hemoglobin A1c goal of less than 7.0 on metformin (2) Hypercholesterolemia: Code(s): E78.00 - Pure hypercholesterolemia, unspecified Plan: Avoid fried foods, chicken skin, eggs, butter margarine, pastries and meat. Be it pork or beef they have a lot of cholesterol LDL goal of less than 100 and triglyceride of less than 150 on fenofibrate and atorvastatin (3) Osteoporosis: Code(s): M81.0 - Age-related osteoporosis without current pathological fracture Qualifiers: Osteoporosis type: age-related Presence of current pathological fracture: without current pathological fracture Qualified Code(s): M81.0 - Age- related osteoporosis without current pathological fracture Plan: Continue with alendronate and up-to-date with bone density. (4) Hypertension: Code(s): I10 - Essential (primary) hypertension Qualifiers: Hypertension type: essential hypertension Qualified Code(s): I10 - Essential (primary) hypertension Plan: Continue with blood pressure medication. Decrease salt intake and exercise on lisinopril 5 mg once (5) Hypothyroid: Code(s): E03.9 - Hypothyroidism, unspecified Qualifiers: Hypothyroidism type: acquired Qualified Code(s): E03.9 - Hypothyroidism, unspecified Plan: Continue with thyroid med (6) Fatty liver: Code(s): K76.0 - Fatty (change of) liver, not elsewhere classified Plan: Low-fat diet and exercise Orders: Orders AMB Hemoglobin A1c Today .65 - Type 2 diabetes mellitus with hyperglycemia Complete Blood Count Auto Diff 2 Months . - Type 2 diabetes mellitus with hyperglycemia Comprehensive Met. Panel 2 Months E11. - Type 2 diabetes mellitus with hyperglycemia Thyroid Stimulating Hormone 2 Months E11. - Type 2 diabetes mellitus with hyperglycemia Vitamin B12 and Folate 2 Months E11. - Type 2 diabetes mellitus with hyperglycemia Microalbumin, Random (w Creat) 2 Months E11.65 - Type 2 diabetes mellitus with hyperglycemia Free T4 (Free Thyroxine) 2 Months E11. - Type 2 diabetes mellitus with hyperglycemia Lipid Panel 2 Months E11. - Type 2 diabetes mellitus with hyperglycemia, E78.00 - Pure hypercholesterolemia, unspecified Vitamin D 25-OH Total 2 Months E11. - Type 2 diabetes mellitus with hyperglycemia Hemoglobin A1c 2 Months E11. - Type 2 diabetes mellitus with hyperglycemia Creatinine Urine 2 Months E11. - Type 2 diabetes mellitus with hyperglycemia Td State Immunization Today Z23 - Encounter for immunization Medications: New tetanus-diphtheria toxoids-Td 0.5 mL IM ONCE 0.5 mL 0RF Z23 - Encounter for immunization Coding Level of Care Code Est Pt Level 4 (24486) Diagnoses Type 2 diabetes mellitus with hyperglycemia, without long-term current use of insulin . Diabetes mellitus detention insulin use: without manager long term care use Hypercholesterolemia E78.00 Age-related osteoporosis without current pathological fracture M81.0 Osteoporosis type: age-related Presence of current pathological fracture: without current pathological fracture Essential hypertension I10 Hypertension type: essential hypertension Acquired hypothyroidism E03.9 Hypothyroidism type: acquired Fatty liver K76.0
[2024-02-23 15:35] VITALS: BP 130/72; PULSE 69; O2SAT 97; BMI 21.3
== END 2024-02-23 16:42 | disposition home or self-care (01) ==
PROVIDERS: PCP Internal Medicine; Visit Provider Internal Medicine
DX: E11.65 Type 2 diabetes mellitus with hyperglycemia (principal); E78.00 Pure hypercholesterolemia, unspecified; M81.0 Age-related osteoporosis without current pathological fracture; I10 Essential (primary) hypertension; E03.9 Hypothyroidism, unspecified; K76.0 Fatty (change of) liver, not elsewhere classified; Z23 Encounter for immunization
CPT/HCPCS: 83036; 90471; 90714; 99214

== ENCOUNTER 2024-05-29 08:13 | Outpatient (REF) | payer OTHER, SELFPAY | END 2024-05-29 08:14 | disposition home or self-care (01) | LOC: HO.MAMMO 08:13 | PROVIDERS: PCP Internal Medicine; Visit Provider Internal Medicine | DX: Z12.31 Encounter for screening mammogram for malignant neoplasm of breast (principal) | CPT/HCPCS: 77063; 77067 ==

== ENCOUNTER → 2024-05-29 09:15 | Outpatient (BNV) | payer OTHER, SELFPAY | PROVIDERS: PCP Internal Medicine; Visit Provider Internal Medicine | DX: Z12.31 Encounter for screening mammogram for malignant neoplasm of breast (principal) | CPT/HCPCS: 77063; 77067 ==

== ENCOUNTER 2025-03-05 06:45 | Outpatient (REF) | payer OTHER, SELFPAY ==
[2025-03-05 07:02] LABS: MANUAL DIFF FLAG NO
[2025-03-05 07:47] LABS: Hematocrit 35.8 % (37.0-47.0); Hemoglobin 11.7 g/dl (12.0-16.0); Imm Gran Abs Auto 0.02 X10*3/uL (0.00-0.03); Imm Gran Pct Auto 0.4 % (0.0-0.4); Lymphocytes Absolute Auto 1.9 X10*3/uL (1.2-4.9); Mean Corpuscular HGB Conc 32.7 g/dl (31.0-35.0); Mean Corpuscular Hemoglobin 27.2 pg (27.0-33.0); Mean Corpuscular Volume 83.3 fL (80.0-98.0); NRBC Abs Auto 0.000 X10*3/uL (0.0-0.012); NRBC Pct Auto 0.0 /100WBC (0.0-0.2); Platelet Count 298 X10*3/uL (160-400); Red Blood Count 4.30 X10*6/uL (4.20-5.50); White Blood Count 5.5 X10*3/uL (4.8-10.8)
[2025-03-05 07:56] LABS: Hemoglobin A1C 125.4462 umol/L; Total Hemoglobin (HGBA1C) 3081.3921 umol/L
[2025-03-05 08:04] LABS: Alanine Aminotransferase 33 U/L (0-31); Albumin Level 4.6 g/dL (3.5-5.0); Alkaline Phosphatase 41 U/L (39-117); Anion Gap 12 (12-20); Aspartate Amino Transferase 37 U/L (5-31); Blood Urea Nitrogen 25 mg/dL (9-16); Calcium 9.9 mg/dL (8.4-10.2); Carbon Dioxide 27 mmol/L (22-29); Chloride 107 mmol/L (96-108); Cholesterol 148 mg/dL (<200); Estimated Glomerular Filt Rate 45; HDL Cholesterol 38 mg/dL (>40); Potassium 4.5 mmol/L (3.3-5.1); Sodium 141 mmol/L (135-145); Total Protein 7.2 g/dL (6.5-8.0); Triglycerides 154 mg/dL (<150)
[2025-03-05 08:29] LABS: Free T4 (Free Thyroxine) 1.13 ng/dL (0.71-1.85); Thyroid Stimulating Hormone 1.30 uIU/mL (0.32-4.0)
[2025-03-05 08:31] LABS: Folate 9.1 ng/mL (> or = 4.0); Vitamin B12 591 pg/mL (200-900)
== END 2025-03-05 06:46 | disposition home or self-care (01) ==
LOC: HO.LAB 06:45
PROVIDERS: PCP Internal Medicine; Visit Provider Internal Medicine
DX: E11.65 Type 2 diabetes mellitus with hyperglycemia (principal); E78.00 Pure hypercholesterolemia, unspecified; Z13.21 Encounter for screening for nutritional disorder
CPT/HCPCS: 36415; 80053; 80061; 82043; 82306; 82570; 82607; 82746; 83036; 84439; 84443; 85025

== ENCOUNTER 2025-03-10 15:32 | Outpatient (AMB) | payer OTHER, SELFPAY ==
--- NOTE | 2025-03-10 15:57 | MHC.PC.OV ---
Vital Signs 03/10/25 16:00 Height 5 ft 5 in Weight 122 lb BMI 20.3 BP 122/68 Blood Pressure Location Lt brachial Position Sitting Pulse 77 Pulse Source Pulse Oximeter Pulse Oximetry (%) 99 Oxygen Delivery Method Room Air Intake Visit Reasons: 3 months - follow up, resched Allergies niacin Allergy (Unknown, Verified 03/10/25 16:00) hives,diarrhea Tobacco use date assessed: 03/10/25 Fall risk assessment: No Falls in past year Last assessed Fall Risk: 03/10/25 Dental Screening Dental Screen Date: 02/23/24 [facility] Medical History (Updated 03/10/25 @ 16:58 by Antonio Linares MD) Colon cancer screening Breast cancer screening by mammogram Type 2 diabetes mellitus with hyperglycemia Hypercholesterolemia Fatty liver Osteoporosis Hypertension Hypothyroid Surgical History Hx of colonoscopy (~2010) History of cholecystectomy Family History Father Myocardial infarction Mother CAD (coronary artery disease) Social History Housing: House Alcohol intake: never Patient Tobacco Use Status: Never used Tobacco Tobacco use type: Cigarette e-Cigarette/Vaping Use: Never Used Second Hand Smoke Exposure: No Current occupational status: retired Cognitive needs: No Hearing needs: No Vision needs: No Questionnaire Thrive Questionnaire Date Thrive assessed: 03/10/25 I am a: Patient What is your living situation today?: I have a steady place to live Within the past 12 months, did the food you bought not last and you didn't have the money to get more?: Never true Within the past 12 months, did you worry whether your food would run out before you got money to buy more?: Never true Do you have trouble paying for medicines?: No Do you have trouble getting transportation to medical appointments?: No Do you have trouble paying your heating and electricity bill?: No Do you have trouble taking care of your child, family member or friend?: No Do you have trouble with day-to-day activities such as bathing, preparing meals, shopping, managing finances, etc.?: No Are you currently unemployed and looking for a job?: No Are you interested in more education?: No Currently or been in a relationship where the following occur: No concerns reported THRIVE Score: 0 AUDIT C Alcohol Use Questionnaire (AUDIT-C) 1. How often do you have a drink containing alcohol?: Never 2. How many drinks containing alcohol do you have on a typical day when you are drinking?: 1 or 2 3. How often do you have six or more drinks on one occasion?: Never Total Score: 0 CHRYSTAL-7 AMB Questionnaire CHRYSTAL-7 Date CHRYSTAL - 7 assessed: 03/10/25 Feeling nervous, anxious, or on edge: 0 = Not at all Not being able to stop or control worryin = Not at all Worrying too much about different things: 0 = Not at all Trouble relaxin = Not at all Being so restless that it is hard to sit still: 0 = Not at all Becoming easily annoyed or irritable: 0 = Not at all Feeling afraid as if something awful might happen: 0 = Not at all Total CHRYSTAL-7 score (0-4 normal; 5-9 mild; 10-14 moderate; 15-21 severe): 0 Source: Developed by Drs. Bhavik Villar, Viry Lam, Ray Matias and colleagues, with an educational marla from [employer]. Physical exam (Primary Care) Vital Signs: Last Vital Signs Pulse 77 03/10/25 16:00 BP 122/68 03/10/25 16:00 Pulse Ox 99 03/10/25 16:00 Oxygen Delivery Method Room Air 03/10/25 16:00 BMI result Body Mass Index 20.3 Tobacco/Smoking Status: Tobacco use Status Tobacco use date assessed 03/10/25 03/10/25 16:01 Patient Tobacco Use Status Never used Tobacco 03/10/25 15:58 Tobacco use type Cigarette 03/10/25 15:58 e-Cigarette/Vaping Use Never Used 03/10/25 15:58 Thrive Assessment: Date of Thrive Assessment Date Thrive assessed 03/10/25 03/10/25 16:01 Currently or been in a relationship where the following occur: No concerns reported Const General: alert; No acute distress Eyes Conjunctivae: conjunctivae normal Resp Auscultation: clear to auscultation bilaterally Cardio Rate: regular rate Rhythm: regular rhythm GI Inspection: Yes normal to inspection Extrem General: Yes normal to inspection and No edema Coding Level of Care Code Est Pt Level 4 (40276) Complex EM visit Add On G2211 Diagnoses Type 2 diabetes mellitus with hyperglycemia, without long-term current use of insulin E11.65 Diabetes mellitus termite renewal inspector insulin use: without custodial use Essential hypertension I10 Hypertension type: essential hypertension Hypercholesterolemia E78.00 Acquired hypothyroidism E03.9 Hypothyroidism type: acquired Fatty liver K76.0 Anemia D64.9 Colon cancer screening Z12.11 Assessment & Plan Assessment & Plan (1) Type 2 diabetes mellitus with hyperglycemia: Comment: [facility] [employer] Code(s): E11.65 - Type 2 diabetes mellitus with hyperglycemia Category: Medical Qualifiers: Diabetes mellitus custodial insulin use: without termite renewal inspector use Qualified Code(s): E11.65 - Type 2 diabetes mellitus with hyperglycemia Plan: Decrease the amount of carbohydrate intake, pasta, bread, rice and potatoes are all sugar and that is aside from all the sweet stuff, remember that fruits are good but they are Sweet also. Hemoglobin A1c goal of less than 7.0. Patient on metformin a 1000 mg once a day (2) Hypertension: Code(s): I10 - Essential (primary) hypertension Category: Medical Qualifiers: Hypertension type: essential hypertension Qualified Code(s): I10 - Essential (primary) hypertension Plan: Continue with blood pressure medication. Decrease salt intake and exercise on lisinopril 5 mg once a day (3) Hypercholesterolemia: Code(s): E78.00 - Pure hypercholesterolemia, unspecified Category: Medical Plan: Avoid fried foods, chicken skin, eggs, butter margarine, pastries and meat. Be it pork or beef they have a lot of cholesterol LDL goal of less than 100 and triglyceride of less than 150. On atorvastatin 80 mg once a day (4) Hypothyroid: Code(s): E03.9 - Hypothyroidism, unspecified Category: Medical Qualifiers: Hypothyroidism type: acquired Qualified Code(s): E03.9 - Hypothyroidism, unspecified Plan: Continue with thyroid medication (5) Fatty liver: Code(s): K76.0 - Fatty (change of) liver, not elsewhere classified Category: Medical Plan: Low-fat diet and exercise (6) Anemia: Code(s): D64.9 - Anemia, unspecified Category: Medical Plan: Discussed with the patient anemia and will try to follow this up (7) Colon cancer screening: Comment: Negative Cologuard 2020 repeat in 3 years Code(s): Z12.11 - Encounter for screening for malignant neoplasm of colon Category: Medical Plan History of Present Illness The patient is a 69-year-old female presenting for a follow-up visit. She has a history of diabetes mellitus, which is currently managed with metformin 1000 mg once or twice daily, aiming for a hemoglobin A1c goal of less than 7.0%. Her recent hemoglobin A1c was 5.9, indicating good glycemic control. The patient also has hypercholesterolemia, with a recent LDL cholesterol level of 80 mg/dL and triglycerides at 154 mg/dL. She is on atorvastatin 80 mg daily, with a target LDL of less than 100 mg/dL and triglycerides of less than 150 mg/dL. Her medical history includes osteoporosis, with the last bone density test conducted in January 2023. She is currently on alendronate and a follow-up bone density test has been ordered. The patient has hypertension, managed with lisinopril 5 mg daily. She has hypothyroidism and continues her thyroid medication. The patient has a history of fatty liver, with liver function tests reported as normal. Recently, the patient was found to have anemia with hemoglobin at 11.7 g/dL and hematocrit at 35.8%. This is the first occurrence of anemia, and further evaluation is planned, including checking iron and vitamin B12 levels. Health Maintenance - Mammogram up to date as of May 2024 - Colon cancer screening with Cologuard in March 2021 - Bone density test conducted in January 2023, follow-up ordered - Vaccinations: Flu shot received, shingles and tetanus shots up to date, pneumonia vaccination discussed Social History - Reports drinking six to eight glasses of water daily - Recent weight loss of approximately 20 pounds, partially intentional Review of Systems - General: Denies fatigue, reports good appetite - Cardiovascular: Denies chest pain - Respiratory: Denies dyspnea - Gastrointestinal: Denies diarrhea, constipation, and abdominal pain - Musculoskeletal: Denies leg swelling Physical Exam Results - Labs: Hemoglobin 11.7 g/dL, Hematocrit 35.8%, Hemoglobin A1c 5.9%, LDL 80 mg/dL, Triglycerides 154 mg/dL, normal B12, vitamin D, folic acid, and thyroid levels - Tests: Mammogram up to date as of May 2024, Colon cancer screening with Cologuard in March 2021 Plan Patient was informed and verbally consented to the use of an ambient scribe for clinic note documentation during this visit. 1. Diabetes Mellitus The patient's diabetes is well-controlled with a hemoglobin A1c of 5.9%. She is currently on metformin 1000 mg once or twice daily, with a target A1c of less than 7.0%. 2. Hypercholesterolemia The patient's LDL cholesterol is 80 mg/dL, and triglycerides are 154 mg/dL. She is on atorvastatin 80 mg daily, with goals of LDL less than 100 mg/dL and triglycerides less than 150 mg/dL. 3. Osteoporosis The patient is on alendronate and a follow-up bone density test has been ordered. 4. Hypertension The patient's hypertension is managed with lisinopril 5 mg daily. 5. Hypothyroidism The patient continues her thyroid medication. 6. Anemia The patient has mild anemia with hemoglobin at 11.7 g/dL and hematocrit at 35.8%. Further evaluation is planned, including checking iron and vitamin B12 levels. 7. Preventative Care The patient is up to date with her mammogram and colon cancer screening. A follow-up bone density test has been ordered. Vaccinations are current, including flu, shingles, and tetanus shots. Discussion Notes During the visit, we discussed the patient's mild anemia and the need for further evaluation, including checking iron and vitamin B12 levels. We also reviewed her diabetes management, emphasizing the importance of maintaining her current regimen to keep her hemoglobin A1c below 7.0%. The patient was informed about the need for a follow-up bone density test and the continuation of her current medications for hypercholesterolemia and hypertension. Patient Instructions - Continue taking metformin as prescribed to maintain blood sugar levels. - Take atorvastatin daily to manage cholesterol levels. - Follow up on the bone density test as scheduled. - Ensure vaccinations are up to date, including flu and pneumonia shots. - Monitor for any symptoms of anemia and report them promptly. Orders: Orders Ferritin 2 Months D64.9 - Anemia, unspecified Vitamin B12 and Folate 2 Months D64.9 - Anemia, unspecified Complete Blood Count Auto Diff 2 Months D64.9 - Anemia, unspecified XR DEXA axial skeleton Today M81.0 - Age-related osteoporosis without current pathological fracture Comprehensive Met. Panel 2 Months D64.9 - Anemia, unspecified Reticulocyte Count 2 Months D64.9 - Anemia, unspecified IRON PROFILE 2 Months D64.9 - Anemia, unspecified Referrals Gastroenterology Referral Z12.11 - Encounter for screening for malignant neoplasm of colon
[2025-03-10 16:00] VITALS: BP 122/68; PULSE 77; O2SAT 99; BMI 20.3
== END 2025-03-10 17:22 | disposition home or self-care (01) ==
LOC: HO.HMCH 15:33
PROVIDERS: PCP Internal Medicine; Visit Provider Internal Medicine
DX: E11.65 Type 2 diabetes mellitus with hyperglycemia (principal); I10 Essential (primary) hypertension; E78.00 Pure hypercholesterolemia, unspecified; E03.9 Hypothyroidism, unspecified; K76.0 Fatty (change of) liver, not elsewhere classified; D64.9 Anemia, unspecified; Z12.11 Encounter for screening for malignant neoplasm of colon